=== PATIENT | male | born 1945 | race Caucasian/White ===

== ENCOUNTER → 2018-06-13 | Outpatient (CLI) | payer MEDICARE ==
[2018-06-13 12:19] LABS: Urine Blood Negative /uL (Negative); Urine Specific Gravity 1.021 (1.001-1.035)
[2018-06-13 12:31] LABS: Basophils # (auto) 0 uL; Basophils % (auto) 0.5 % (0.0-2.0); Eosinophils # (auto) 0.1 uL; Eosinophils % (auto) 1.7 % (0.0-7.0); Hemoglobin 15.7 g/dL (13.5-17.5); Lymphocytes # (auto) 1.4 uL; Lymphocytes % (auto) 32.6 % (10.0-50.0); Mean Corpuscular Hemoglobin 31.4 pg (28.0-32.0); Mean Corpuscular Hgb Conc. 34.3 g/dL (32.0-36.0); Mean Corpuscular Volume 91.7 fL (80.0-100.0); Monocytes # (auto) 0.4 uL; Monocytes % (auto) 10.5 % (0.0-12.0); Neutrophils # (auto) 2.3 uL; Neutrophils % (auto) 54.7 % (37.0-80.0); Nucleated Red Blood Cells % 0.5 %; Platelet Count (auto) 97 10^3/uL (140-450); Red Blood Cells 5.01 10^6/uL (4.5-5.90); White Blood Cell 4.2 10^3/uL (4.4-10.8)
[2018-06-13 12:56] LABS: Free T4 (Free Thyroxine) 1.17 ng/dL (0.89-1.76); Prostate Specific Antigen 1.97 ng/mL (0.0-4.0)
[2018-06-13 13:04] LABS: Albumin 3.9 g/dL (3.4-5.0); BUN/Creatinine Ratio 13.4; Bilirubin, Total 0.8 mg/dL (0.2-1.0); Calcium 8.8 mg/dL (8.5-10.1); Potassium 4.3 mmol/L (3.5-5.1); Total Protein 7.2 g/dL (6.4-8.2); Uric Acid 4.2 mg/dL (3.5-7.2)
== END | disposition home or self-care (01) ==
LOC: LAB 08:24
PROVIDERS: ATTEND Internal Medicine Cardiovascular Disease
DX: C61 Malignant neoplasm of prostate (principal); E11.9 Type 2 diabetes mellitus without complications; E03.9 Hypothyroidism, unspecified; E29.1 Testicular hypofunction; E55.9 Vitamin D deficiency, unspecified; M10.9 Gout, unspecified; D51.9 Vitamin B12 deficiency anemia, unspecified; N39.0 Urinary tract infection, site not specified
CPT/HCPCS: 36415; 80053; 80061; 81003; 82306; 82607; 83036; 84153; 84403; 84439; 84443; 84550; 85025

== ENCOUNTER → 2018-07-08 | Outpatient (CLI) | payer MEDICARE ==
[2018-07-08 12:44] LABS: Basophils # (auto) 0 uL; Basophils % (auto) 0.7 % (0.0-2.0); Eosinophils # (auto) 0.1 uL; Eosinophils % (auto) 1.1 % (0.0-7.0); Hematocrit 46.5 % (41.0-53.0); Hemoglobin 16.2 g/dL (13.5-17.5); Lymphocytes # (auto) 1.7 uL; Mean Corpuscular Hemoglobin 32.3 pg (28.0-32.0); Mean Corpuscular Hgb Conc. 34.8 g/dL (32.0-36.0); Mean Corpuscular Volume 92.7 fL (80.0-100.0); Monocytes # (auto) 0.5 uL; Monocytes % (auto) 8.8 % (0.0-12.0); Neutrophils % (auto) 57.4 % (37.0-80.0); Nucleated Red Blood Cells % 0.4 %; Platelet Count (auto) 107 10^3/uL (140-450); Red Blood Cells 5.02 10^6/uL (4.5-5.90); Red Cell Distribution Width 13.1 % (11.8-14.3); White Blood Cell 5.2 10^3/uL (4.4-10.8)
[2018-07-08 12:56] LABS: Urine Bacteria NONE SEEN /hpf (None Seen); Urine Blood Negative /uL (Negative); Urine Specific Gravity 1.012 (1.001-1.035); Urine WBC <1 /hpf (0 - 3)
== END | disposition home or self-care (01) ==
LOC: LAB 09:25
PROVIDERS: ATTEND Internal Medicine Cardiovascular Disease
DX: N39.0 Urinary tract infection, site not specified (principal); D64.9 Anemia, unspecified
CPT/HCPCS: 36415; 81001; 85025; 87086

== ENCOUNTER → 2018-10-07 | Outpatient (CLI) | payer MEDICARE ==
[2018-10-07 12:24] LABS: Urine Blood Negative /uL (Negative)
[2018-10-07 12:27] LABS: Basophils # (auto) 0 uL; Basophils % (auto) 0.6 % (0.0-2.0); Eosinophils # (auto) 0.1 uL; Eosinophils % (auto) 1.6 % (0.0-7.0); Hemoglobin 15.6 g/dL (13.5-17.5); Lymphocytes # (auto) 1.7 uL; Lymphocytes % (auto) 35.2 % (10.0-50.0); Mean Corpuscular Hemoglobin 31.6 pg (28.0-32.0); Mean Corpuscular Hgb Conc. 34.6 g/dL (32.0-36.0); Mean Corpuscular Volume 91.5 fL (80.0-100.0); Monocytes # (auto) 0.5 uL; Monocytes % (auto) 10.5 % (0.0-12.0); Neutrophils # (auto) 2.5 uL; Neutrophils % (auto) 52.1 % (37.0-80.0); Nucleated Red Blood Cells % 0.9 %; Platelet Count (auto) 92 10^3/uL (140-450); Red Blood Cells 4.92 10^6/uL (4.5-5.90); Red Cell Distribution Width 13.3 % (11.8-14.3); White Blood Cell 4.8 10^3/uL (4.4-10.8)
[2018-10-07 12:56] LABS: Albumin 3.8 g/dL (3.4-5.0); Anion Gap 5 (5-15); Blood Urea Nitrogen 18 mg/dL (7-18); Calcium 8.6 mg/dL (8.5-10.1); Carbon Dioxide 29 mmol/L (21-32); Chloride 106 mmol/L (98-107); Glucose 93 mg/dL (74-106); Sodium 140 mmol/L (136-145)
[2018-10-07 13:04] LABS: Alanine Aminotransferase 20 U/L (16-61); Alkaline Phosphatase 62 U/L (45-117); Aspartate Aminotransferase 12 U/L (15-37); BUN/Creatinine Ratio 13.5; Cholesterol 151 mg/dL (< 200); GFR Non-African American 56 mL/min; HDL Cholesterol 63 mg/dL (40-59); LDL Cholesterol 80 mg/dL (< 100); Total Protein 6.7 g/dL (6.4-8.2); Triglycerides 78 mg/dL (< 150)
[2018-10-07 13:13] LABS: Free T4 (Free Thyroxine) 1.09 ng/dL (0.89-1.76)
[2018-10-07 13:14] LABS: Prostate Specific Antigen 1.22 ng/mL (0.0-4.0)
[2018-10-07 13:39] LABS: GFR African American > 60 mL/min
== END | disposition home or self-care (01) ==
LOC: LAB 09:00
PROVIDERS: ATTEND Internal Medicine
DX: E03.9 Hypothyroidism, unspecified (principal); E11.9 Type 2 diabetes mellitus without complications; E55.9 Vitamin D deficiency, unspecified; C61 Malignant neoplasm of prostate; E29.1 Testicular hypofunction; D51.9 Vitamin B12 deficiency anemia, unspecified; N39.0 Urinary tract infection, site not specified
CPT/HCPCS: 36415; 80053; 80061; 81003; 82306; 82607; 83036; 84153; 84403; 84439; 84443; 85025; 87086

== ENCOUNTER → 2018-12-24 | Outpatient (CLI) | payer MEDICARE ==
[2018-12-24 12:14] LABS: BUN/Creatinine Ratio 14.2; Calcium 8.8 mg/dL (8.5-10.1); Potassium 4.6 mmol/L (3.5-5.1); Uric Acid 5.4 mg/dL (3.5-7.2)
== END | disposition home or self-care (01) ==
LOC: LAB 09:52
PROVIDERS: ATTEND Internal Medicine Cardiovascular Disease
DX: M10.9 Gout, unspecified (principal); I10 Essential (primary) hypertension
CPT/HCPCS: 36415; 80048; 84550

== ENCOUNTER → 2019-11-03 | Outpatient (CLI) | payer MEDICARE ==
[2019-11-03 12:22] LABS: Basophils # (auto) 0 uL; Basophils % (auto) 0.4 % (0.0-2.0); Eosinophils # (auto) 0.1 uL; Eosinophils % (auto) 1.6 % (0.0-7.0); Hematocrit 46.3 % (41.0-53.0); Hemoglobin 15.7 g/dL (13.5-17.5); Lymphocytes # (auto) 1.4 uL; Lymphocytes % (auto) 29.6 % (10.0-50.0); Mean Corpuscular Hemoglobin 31.6 pg (28.0-32.0); Monocytes # (auto) 0.5 uL; Monocytes % (auto) 9.9 % (0.0-12.0); Neutrophils # (auto) 2.9 uL; Neutrophils % (auto) 58.5 % (37.0-80.0); Nucleated Red Blood Cells % 0.2 %; Platelet Count (auto) 102 10^3/uL (140-450); Red Blood Cells 4.98 10^6/uL (4.5-5.90); White Blood Cell 4.9 10^3/uL (4.4-10.8)
[2019-11-03 12:38] LABS: Albumin 3.8 g/dL (3.4-5.0); Calcium 8.7 mg/dL (8.5-10.1); Potassium 4.2 mmol/L (3.5-5.1)
[2019-11-03 12:42] LABS: Free T4 (Free Thyroxine) 1.1 ng/dL (0.89-1.76)
[2019-11-03 12:43] LABS: BUN/Creatinine Ratio 13.3; Prostate Specific Antigen 1.45 ng/mL (0.0-4.0); Total Protein 7.1 g/dL (6.4-8.2)
[2019-11-03 12:53] LABS: Urine Blood Negative /uL (Negative); Urine Specific Gravity 1.025 (1.001-1.035)
== END | disposition home or self-care (01) ==
LOC: LAB 08:20
PROVIDERS: ATTEND Internal Medicine Cardiovascular Disease
DX: E03.9 Hypothyroidism, unspecified (principal); K90.9 Intestinal malabsorption, unspecified; C61 Malignant neoplasm of prostate; E29.1 Testicular hypofunction; N39.0 Urinary tract infection, site not specified; D51.9 Vitamin B12 deficiency anemia, unspecified; Z79.899 Other long term (current) drug therapy
CPT/HCPCS: 36415; 80053; 80061; 81003; 82306; 82607; 83036; 84153; 84403; 84439; 84443; 85025

== ENCOUNTER → 2020-06-24 | Outpatient (CLI) | payer MEDICARE ==
[2020-06-24 13:21] LABS: Calcium 8.8 mg/dL (8.5-10.1)
[2020-06-24 13:55] LABS: BUN/Creatinine Ratio 13.9; Potassium 4.4 mmol/L (3.5-5.1); Uric Acid 5.3 mg/dL (3.5-7.2)
== END | disposition home or self-care (01) ==
LOC: LAB 08:37
PROVIDERS: ATTEND Internal Medicine
DX: I10 Essential (primary) hypertension (principal); E55.9 Vitamin D deficiency, unspecified; M10.9 Gout, unspecified
CPT/HCPCS: 36415; 80048; 82306; 84550

== ENCOUNTER → 2020-08-16 | Outpatient (CLI) | payer MEDICARE ==
[2020-08-16 12:22] LABS: Calcium 8.8 mg/dL (8.5-10.1); Uric Acid 3.5 mg/dL (3.5-7.2)
[2020-08-16 12:27] LABS: BUN/Creatinine Ratio 15.3
== END | disposition home or self-care (01) ==
LOC: LAB 08:56
PROVIDERS: ATTEND Internal Medicine Cardiovascular Disease
DX: I10 Essential (primary) hypertension (principal); M10.9 Gout, unspecified
CPT/HCPCS: 36415; 80048; 84550

== ENCOUNTER → 2020-11-15 | Outpatient (CLI) | payer MEDICARE ==
[2020-11-15 13:12] LABS: BUN/Creatinine Ratio 14.5; Calcium 8.8 mg/dL (8.5-10.1); Potassium 4.1 mmol/L (3.5-5.1); Uric Acid 4.2 mg/dL (3.5-7.2)
== END | disposition home or self-care (01) ==
LOC: LAB 08:48
PROVIDERS: ATTEND Internal Medicine
DX: I10 Essential (primary) hypertension (principal); M10.9 Gout, unspecified
CPT/HCPCS: 36415; 80048; 84550

== ENCOUNTER → 2021-01-31 | Outpatient (CLI) | payer MEDICARE ==
[2021-01-31 12:12] LABS: BUN/Creatinine Ratio 11.9; Calcium 8.4 mg/dL (8.5-10.1); Uric Acid 4.2 mg/dL (3.5-7.2)
== END | disposition home or self-care (01) ==
LOC: LAB 08:00
PROVIDERS: ATTEND Internal Medicine
DX: M10.9 Gout, unspecified (principal); E55.9 Vitamin D deficiency, unspecified; I10 Essential (primary) hypertension
CPT/HCPCS: 36415; 80048; 82306; 84550

== ENCOUNTER → 2021-10-03 | Outpatient (CLI) | payer MEDICARE ==
[2021-10-03 11:38] LABS: Basophils # (auto) 0 10 ^3/uL (0-0.2); Basophils % (auto) 0.9 % (0.0-2.0); Eosinophils # (auto) 0.1 10 ^3/uL (0-0.8); Eosinophils % (auto) 1.4 % (0.0-7.0); Hematocrit 44.2 % (41.0-53.0); Hemoglobin 15.5 g/dL (13.5-17.5); Lymphocytes # (auto) 1.6 10 ^3/uL (0.4-5.4); Lymphocytes % (auto) 39.3 % (10.0-50.0); Mean Corpuscular Hgb Conc. 35.1 g/dL (32.0-36.0); Mean Corpuscular Volume 91.1 fL (80.0-100.0); Monocytes # (auto) 0.4 10 ^3/uL (0-1.3); Monocytes % (auto) 9.5 % (0.0-12.0); Neutrophils % (auto) 48.9 % (37.0-80.0); Nucleated Red Blood Cells % 0.3 %; Red Blood Cells 4.85 10^6/uL (4.5-5.90); Red Cell Distribution Width 13.1 % (11.8-14.3); White Blood Cell 4.2 10^3/uL (4.4-10.8)
[2021-10-03 12:07] LABS: Potassium 4.2 mmol/L (3.5-5.1)
[2021-10-03 12:21] LABS: BUN/Creatinine Ratio 13.9; Bilirubin, Total 0.8 mg/dL (0.2-1.0); Calcium 9.1 mg/dL (8.5-10.1); Total Protein 7.3 g/dL (6.4-8.2); Uric Acid 4.1 mg/dL (3.5-7.2)
== END | disposition home or self-care (01) ==
LOC: LAB 09:05
PROVIDERS: ATTEND Internal Medicine
DX: M10.9 Gout, unspecified (principal)
CPT/HCPCS: 36415; 80053; 83002; 83615; 84550; 85025

== ENCOUNTER → 2022-05-23 | Outpatient (CLI) | payer MEDICARE ==
[2022-05-23 12:27] LABS: Urine Blood Negative /uL (Negative); Urine Specific Gravity 1.017 (1.001-1.035)
[2022-05-23 12:38] LABS: Basophils # (auto) 0 10 ^3/uL (0-0.2); Basophils % (auto) 0.5 % (0.0-2.0); Eosinophils # (auto) 0.1 10 ^3/uL (0-0.8); Eosinophils % (auto) 1.5 % (0.0-7.0); Hematocrit 46.2 % (41.0-53.0); Hemoglobin 15.6 g/dL (13.5-17.5); Lymphocytes # (auto) 1.8 10 ^3/uL (0.4-5.4); Lymphocytes % (auto) 39.8 % (10.0-50.0); Mean Corpuscular Hemoglobin 30.9 pg (28.0-32.0); Mean Corpuscular Hgb Conc. 33.8 g/dL (32.0-36.0); Mean Corpuscular Volume 91.6 fL (80.0-100.0); Monocytes # (auto) 0.5 10 ^3/uL (0-1.3); Monocytes % (auto) 10.2 % (0.0-12.0); Neutrophils # (auto) 2.2 10 ^3/uL (1.6-8.6); Red Blood Cells 5.04 10^6/uL (4.5-5.90); Red Cell Distribution Width 13.9 % (11.8-14.3); White Blood Cell 4.5 10^3/uL (4.4-10.8)
[2022-05-23 12:48] LABS: Albumin 3.8 g/dL (3.4-5.0); Calcium 8.9 mg/dL (8.5-10.1); Potassium 4.4 mmol/L (3.5-5.1)
[2022-05-23 12:53] LABS: BUN/Creatinine Ratio 14.4; Bilirubin, Total 1.3 mg/dL (0.2-1.0); Total Protein 7.1 g/dL (6.4-8.2)
[2022-05-23 13:07] LABS: Free T4 (Free Thyroxine) 1.22 ng/dL (0.89-1.76)
[2022-05-23 13:08] LABS: Prostate Specific Antigen 1.66 ng/mL (0.0-4.0)
== END | disposition home or self-care (01) ==
LOC: LAB 08:29
PROVIDERS: ATTEND Internal Medicine
DX: C61 Malignant neoplasm of prostate (principal); I10 Essential (primary) hypertension; E55.9 Vitamin D deficiency, unspecified; D51.3 Other dietary vitamin B12 deficiency anemia; D64.9 Anemia, unspecified; E11.9 Type 2 diabetes mellitus without complications; R00.2 Palpitations; R53.1 Weakness; R30.0 Dysuria
CPT/HCPCS: 36415; 80053; 80061; 81003; 82306; 82607; 83036; 84153; 84403; 84439; 84443; 85025

== ENCOUNTER → 2023-04-20 | Outpatient (CLI) | payer MEDICARE | END | disposition home or self-care (01) | LOC: Rad HDHVI 14:38 | PROVIDERS: ATTEND Internal Medicine Cardiovascular Disease | DX: Z01.818 Encounter for other preprocedural examination (principal); D53.8 Other specified nutritional anemias; N39.0 Urinary tract infection, site not specified; M79.89 Other specified soft tissue disorders | CPT/HCPCS: 71046 ==

== ENCOUNTER → 2023-06-26 | Outpatient (CLI) | payer MEDICARE ==
[~2023-06-26] VITALS: Ht 185.4 cm; Wt 90.7 kg
== END | disposition home or self-care (01) ==
LOC: Rad HDHVI 12:57
PROVIDERS: ATTEND Internal Medicine Cardiovascular Disease
DX: I10 Essential (primary) hypertension (principal); Z79.899 Other long term (current) drug therapy
CPT/HCPCS: 78452; 93017; 96374; A9500

== ENCOUNTER → 2023-06-27 | Outpatient (CLI) | payer MEDICARE | END | disposition home or self-care (01) | LOC: Rad HDHVI 09:48 | PROVIDERS: ATTEND Internal Medicine Cardiovascular Disease | DX: I65.22 Occlusion and stenosis of left carotid artery (principal); I10 Essential (primary) hypertension | CPT/HCPCS: 93880 ==

== ENCOUNTER → 2023-06-29 | Outpatient (CLI) | payer MEDICARE | END | disposition home or self-care (01) | LOC: Rad HDHVI 09:54 | PROVIDERS: ATTEND Internal Medicine Cardiovascular Disease | DX: I35.0 Nonrheumatic aortic (valve) stenosis (principal); I11.9 Hypertensive heart disease without heart failure | CPT/HCPCS: 93306 ==

== ENCOUNTER → 2023-09-03 | Outpatient (CLI) | payer MEDICARE ==
[~2023-09-03] MED LIST: ALLO300T2 PO; ASPI-543 PO; CHOL50007 PO; LISI20TA56 PO; MULTTAB99 PO; SPIR25TA PO
[2023-09-03 12:26] VITALS: BP 156/54; PULSE 78; RESP 16; O2SAT 93
[2023-09-03 12:48] VITALS: BP 154/60; PULSE 79; RESP 16; O2SAT 93
== END | disposition home or self-care (01) ==
LOC: CHF HDHVI 12:18
PROVIDERS: ATTEND Internal Medicine Cardiovascular Disease
DX: Z01.818 Encounter for other preprocedural examination (principal); I44.7 Left bundle-branch block, unspecified; R94.31 Abnormal electrocardiogram [ECG] [EKG]; I11.0 Hypertensive heart disease with heart failure; I50.20 Unspecified systolic (congestive) heart failure; R94.39 Abnormal result of other cardiovascular function study
CPT/HCPCS: 93005; G0463

== ENCOUNTER 2023-09-06 07:25 | Day surgery (SDC) | payer MEDICARE ==
[2023-09-03 13:38] LABS: Basophils # (auto) 0 10 ^3/uL (0-0.2); Basophils % (auto) 0.4 % (0.0-2.0); Eosinophils # (auto) 0 10 ^3/uL (0-0.8); Eosinophils % (auto) 0.8 % (0.0-7.0); Hematocrit 48.4 % (41.0-53.0); Hemoglobin 16.4 g/dL (13.5-17.5); Lymphocytes # (auto) 1.7 10 ^3/uL (0.4-5.4); Lymphocytes % (auto) 29.4 % (10.0-50.0); Mean Corpuscular Hemoglobin 31.2 pg (28.0-32.0); Mean Corpuscular Hgb Conc. 33.9 g/dL (32.0-36.0); Mean Corpuscular Volume 92.1 fL (80.0-100.0); Monocytes # (auto) 0.5 10 ^3/uL (0-1.3); Monocytes % (auto) 7.8 % (0.0-12.0); Neutrophils # (auto) 3.6 10 ^3/uL (1.6-8.6); Neutrophils % (auto) 61.6 % (37.0-80.0); Nucleated Red Blood Cells % 0.2 %; Red Blood Cells 5.26 10^6/uL (4.5-5.90); Red Cell Distribution Width 13.7 % (11.8-14.3); White Blood Cell 5.8 10^3/uL (4.4-10.8)
[2023-09-03 13:48] LABS: INR 1.05 (0.9-1.15); Partial Thromboplastin Time 29.4 SEC (24.5-34.5)
[2023-09-03 14:06] LABS: Chloride 106 mmol/L (98-107); Potassium 4.3 mmol/L (3.5-5.1); Sodium 141 mmol/L (136-145)
[2023-09-03 14:07] LABS: Anion Gap 5 (5-15); Carbon Dioxide 30 mmol/L (20-30)
[2023-09-03 14:08] LABS: Calcium 9.7 mg/dL (8.5-10.1)
[2023-09-03 14:12] LABS: BUN/Creatinine Ratio 12.9 (10.0-20.0); Blood Urea Nitrogen 15 mg/dL (9-23); Glucose 93 mg/dL (74-106)
[~2023-09-06] VITALS: Ht 185.4 cm; Wt 94.3 kg
[2023-09-06] MEDS ORDERED: LIDOCAINE 2%HCL (LOCAL ANESTH.) INJ 20ML MDV ONE (10:36)
[2023-09-06] MEDS ORDERED: IODIXANOL 320MG/ML 100ML BTL IV ONE (10:36)
[2023-09-06] MEDS ORDERED: ANGIOMAX 250 MG VIAL IV ONE (10:38)
[2023-09-06] MEDS ORDERED: fentaNYL CITRATE 100 MCG/2 ML VL ONE (10:38)
[2023-09-06] MEDS ORDERED: MIDAZOLAM HCL 2MG/2ML 2ml VIAL (1mg/ml) ONE (10:39)
[2023-09-06] MEDS ORDERED: SODIUM CHL 0.9% 0 ML ONE (10:39)
[2023-09-06] MEDS ORDERED: IOHEXOL 350 MG/ML 100ML IJ ONE (10:39)
[2023-09-06 11:20] VITALS: BP 165/84; PULSE 72; RESP 18; TEMP 98.3; O2SAT 95
[2023-09-06 11:34] VITALS: BP 148/73; PULSE 66; RESP 16; O2SAT 94
[2023-09-06 11:51] VITALS: BP 143/74; PULSE 65; RESP 18; O2SAT 95
[2023-09-06 12:03] VITALS: BP 165/65; PULSE 60; RESP 15; O2SAT 93
[2023-09-06 12:26] VITALS: BP 150/69; PULSE 70; RESP 19; O2SAT 93
[2023-09-06 13:00] VITALS: BP 163/82; PULSE 69; RESP 17; O2SAT 94
== END 2023-09-06 11:30 | disposition home or self-care (01) ==
LOC: CATH 07:25
PROVIDERS: ATTEND Internal Medicine Cardiovascular Disease
DX: I42.0 Dilated cardiomyopathy (principal); I11.0 Hypertensive heart disease with heart failure; I50.20 Unspecified systolic (congestive) heart failure; I44.7 Left bundle-branch block, unspecified
CPT/HCPCS: 36415; 80048; 85025; 85610; 85730; 93458; C1894; J1644; J2250; J3010; Q9967; 99152

== ENCOUNTER → 2023-09-28 | Outpatient (CLI) | payer MEDICARE ==
[~2023-09-28] MED LIST changes: +CARV12.544 PO; +LEVO500T91 PO
[2023-09-28 12:44] VITALS: BP 154/69; PULSE 56; RESP 16; O2SAT 93
[2023-09-28 13:03] VITALS: BP 153/67; PULSE 56; RESP 16; O2SAT 93
== END | disposition home or self-care (01) ==
LOC: CHF HDHVI 12:37
PROVIDERS: ATTEND Internal Medicine Cardiovascular Disease
DX: Z01.818 Encounter for other preprocedural examination (principal); I44.7 Left bundle-branch block, unspecified; R94.31 Abnormal electrocardiogram [ECG] [EKG]; I42.0 Dilated cardiomyopathy; R00.1 Bradycardia, unspecified; I50.20 Unspecified systolic (congestive) heart failure
CPT/HCPCS: 93005; G0463

== ENCOUNTER 2023-10-04 08:00 | Day surgery (SDC) | payer MEDICARE ==
[2023-09-28 13:55] LABS: Basophils # (auto) 0 10 ^3/uL (0-0.2); Basophils % (auto) 0.2 % (0.0-2.0); Eosinophils # (auto) 0.1 10 ^3/uL (0-0.8); Eosinophils % (auto) 1.1 % (0.0-7.0); Hematocrit 45.3 % (41.0-53.0); Hemoglobin 15.4 g/dL (13.5-17.5); Lymphocytes # (auto) 1.6 10 ^3/uL (0.4-5.4); Lymphocytes % (auto) 30.2 % (10.0-50.0); Mean Corpuscular Hemoglobin 30.9 pg (28.0-32.0); Mean Corpuscular Volume 90.8 fL (80.0-100.0); Monocytes # (auto) 0.5 10 ^3/uL (0-1.3); Monocytes % (auto) 8.5 % (0.0-12.0); Neutrophils # (auto) 3.2 10 ^3/uL (1.6-8.6); Nucleated Red Blood Cells % 0.2 %; Red Blood Cells 4.99 10^6/uL (4.5-5.90); Red Cell Distribution Width 13.8 % (11.8-14.3); White Blood Cell 5.4 10^3/uL (4.4-10.8)
[2023-09-28 14:16] LABS: Anion Gap 3 (5-15); Carbon Dioxide 34 mmol/L (20-30); Chloride 105 mmol/L (98-107); Potassium 4.3 mmol/L (3.5-5.1); Sodium 142 mmol/L (136-145)
[2023-09-28 14:17] LABS: Calcium 9.2 mg/dL (8.5-10.1)
[2023-09-28 14:19] LABS: INR 1.06 (0.9-1.15); Partial Thromboplastin Time 29.5 SEC (24.5-34.5); Prothrombin Time 11.1 sec (9.3-11.8)
[2023-09-28 14:22] LABS: Blood Urea Nitrogen 18 mg/dL (9-23); Glucose 88 mg/dL (74-106)
[~2023-10-04] VITALS: Ht 185.4 cm; Wt 93.0 kg
[~2023-10-04 08:00] MED LIST changes: -LEVO500T91 PO
[2023-10-04] MEDS ORDERED: VANCOMYCIN 1GM/200ML 200 ML IV ONE (09:00)
[2023-10-04] MEDS ORDERED: VANCOMYCIN HCL 1000 MG VL ONE (12:25)
[2023-10-04] MEDS ORDERED: VANCOMYCIN 1GM/200ML 0 ML IV ONE (12:26)
[2023-10-04] MEDS ORDERED: MIDAZOLAM HCL 2MG/2ML 2ml VIAL (1mg/ml) ONE (12:26)
[2023-10-04] MEDS ORDERED: LIDOCAINE 2%HCL (LOCAL ANESTH.) INJ 20ML MDV ONE (12:26)
[2023-10-04] MEDS ORDERED: IOHEXOL 350 MG/ML 100ML IJ ONE ×2 (12:26→12:27)
[2023-10-04] MEDS ORDERED: fentaNYL CITRATE 100 MCG/2 ML VL ONE (12:26)
[2023-10-04 13:54] VITALS: BP 137/67; PULSE 57; RESP 16; TEMP 98.5; O2SAT 91
[2023-10-04 14:10] VITALS: BP 139/67; PULSE 58; RESP 18; O2SAT 97
[2023-10-04 14:23] VITALS: BP 137/68; PULSE 56; RESP 17; O2SAT 94
[2023-10-04 14:41] VITALS: BP 154/70; PULSE 58; RESP 16; O2SAT 93
[2023-10-04] MEDS ORDERED: LEVO500T91 PO (15:00)
[2023-10-04 15:15] VITALS: BP 142/72; PULSE 54; RESP 15; O2SAT 96
[2023-10-04 16:04] VITALS: BP 143/69; PULSE 59; RESP 17; O2SAT 95
== END 2023-10-04 16:25 | disposition home or self-care (01) ==
LOC: CATH 08:00
PROVIDERS: ATTEND Internal Medicine Cardiovascular Disease
DX: I50.22 Chronic systolic (congestive) heart failure (principal); I11.0 Hypertensive heart disease with heart failure; I42.0 Dilated cardiomyopathy; Z88.8 Allergy status to other drugs, medicaments and biological substances; Z88.0 Allergy status to penicillin; Z91.040 Latex allergy status; Z79.82 Long term (current) use of aspirin; Z79.899 Other long term (current) drug therapy
CPT/HCPCS: 33249; 71045; 93005; C1882; C1894; C1895; C1898; J2250; J3010; J3370; Q9967; 36415; 80048; 85025; 85610; 85730; 99152

== ENCOUNTER → 2023-10-29 | Outpatient (CLI) | payer MEDICARE ==
[~2023-10-29] MED LIST changes: +LEVO500T91 PO
== END | disposition home or self-care (01) ==
LOC: Rad HDHVI 12:53
PROVIDERS: ATTEND Internal Medicine Cardiovascular Disease
DX: I08.2 Rheumatic disorders of both aortic and tricuspid valves (principal); I11.9 Hypertensive heart disease without heart failure
CPT/HCPCS: 93306

== ENCOUNTER → 2024-05-01 | Outpatient (CLI) | payer MEDICARE ==
[2024-05-01 11:03] LABS: Basophils # (auto) 0 10 ^3/uL (0-0.2); Basophils % (auto) 0.3 % (0.0-2.0); Eosinophils # (auto) 0.1 10 ^3/uL (0-0.8); Eosinophils % (auto) 1.6 % (0.0-7.0); Hematocrit 45.6 % (41.0-53.0); Hemoglobin 15.7 g/dL (13.5-17.5); Lymphocytes # (auto) 1.7 10 ^3/uL (0.4-5.4); Lymphocytes % (auto) 26.6 % (10.0-50.0); Mean Corpuscular Hemoglobin 32.7 pg (28.0-32.0); Mean Corpuscular Hgb Conc. 34.4 g/dL (32.0-36.0); Mean Corpuscular Volume 95.1 fL (80.0-100.0); Monocytes # (auto) 0.6 10 ^3/uL (0-1.3); Monocytes % (auto) 10.1 % (0.0-12.0); Neutrophils # (auto) 3.9 10 ^3/uL (1.6-8.6); Neutrophils % (auto) 61.4 % (37.0-80.0); Nucleated Red Blood Cells % 0.1 %; Red Blood Cells 4.79 10^6/uL (4.5-5.90); Red Cell Distribution Width 13.5 % (11.8-14.3); White Blood Cell 6.4 10^3/uL (4.4-10.8)
[2024-05-01 11:10] LABS: Urine Blood Negative /uL (Negative); Urine Clarity Clear (Clear); Urine Color Yellow (Yellow); Urine Protein, UAD Negative (Negative); Urine Specific Gravity 1.011 (1.001-1.035); Urine Urobilinogen Normal (Negative)
[2024-05-01 11:55] LABS: Alkaline Phosphatase 82 U/L (46-116); Anion Gap 3 (5-15); BUN/Creatinine Ratio 11.8 (10.0-20.0); Blood Urea Nitrogen 14 mg/dL (9-23); Calcium 9.6 mg/dL (8.7-10.4); Carbon Dioxide 29 mmol/L (20-30); Chloride 108 mmol/L (98-107); Glucose 99 mg/dL (74-106); LDL Cholesterol 81 mg/dL (< 100); Potassium 5.2 mmol/L (3.5-5.1); Sodium 140 mmol/L (136-145); Triglycerides 91 mg/dL (< 150)
[2024-05-01 11:56] LABS: Albumin 4.3 g/dL (3.2-4.8); Aspartate Aminotransferase 12 U/L (13-40); Bilirubin, Direct 0.3 mg/dL (<0.3); Bilirubin, Total 1.1 mg/dL (0.2-1.0); Cholesterol 147 mg/dL (< 200); HDL Cholesterol 52 mg/dL (40-59); Total Protein 6.8 g/dL (5.7-8.2)
[2024-05-01 12:02] LABS: Alanine Aminotransferase < 9 U/L (7-40)
== END | disposition home or self-care (01) ==
LOC: LAB 10:37
PROVIDERS: ATTEND Internal Medicine Cardiovascular Disease
DX: C61 Malignant neoplasm of prostate (principal); I10 Essential (primary) hypertension; E11.9 Type 2 diabetes mellitus without complications; D51.3 Other dietary vitamin B12 deficiency anemia; R30.0 Dysuria; E55.9 Vitamin D deficiency, unspecified; R00.2 Palpitations
CPT/HCPCS: 36415; 80048; 80061; 80076; 81003; 83036; 84153; 84403; 84443; 85025

== ENCOUNTER → 2025-01-19 | Outpatient (CLI) | payer MEDICARE | END | disposition home or self-care (01) | LOC: Rad HDHVI 10:55 | PROVIDERS: ATTEND Internal Medicine Cardiovascular Disease | DX: I35.1 Nonrheumatic aortic (valve) insufficiency (principal); I77.819 Aortic ectasia, unspecified site; I11.9 Hypertensive heart disease without heart failure; E78.5 Hyperlipidemia, unspecified | CPT/HCPCS: 93306 ==

== ENCOUNTER 2025-02-11 09:57 | Outpatient (CLI) | payer MEDICARE ==
[~2025-02-11] VITALS: Ht 185.4 cm; Wt 90.7 kg
[2025-02-11] MEDS ORDERED: ADENOSINE 90 MG/30 ML INJ IV ONE (12:00)
[2025-02-11] MEDS ORDERED: ADENOSINE 76 MG in GIVE UN-DILUTED 0 ML IV ONE (16:30)
== END 2025-02-11 17:00 | disposition home or self-care (01) ==
LOC: Rad HDHVI 09:57
PROVIDERS: ATTEND Internal Medicine Cardiovascular Disease
DX: Z13.6 Encounter for screening for cardiovascular disorders (principal); I49.3 Ventricular premature depolarization; I13.0 Hypertensive heart and chronic kidney disease with heart failure and stage 1 through stage 4 chronic kidney disease, or unspecified chronic kidney disease; I50.23 Acute on chronic systolic (congestive) heart failure; N18.30 Chronic kidney disease, stage 3 unspecified; I48.0 Paroxysmal atrial fibrillation; I42.0 Dilated cardiomyopathy; E78.00 Pure hypercholesterolemia, unspecified; Z95.0 Presence of cardiac pacemaker; Z79.82 Long term (current) use of aspirin
CPT/HCPCS: 78452; 93017; A9500; J0153

== ENCOUNTER 2025-04-22 08:59 | Outpatient (CLI) | payer MEDICARE ==
[2025-04-22 09:13] VITALS: BP 128/61; PULSE 74; RESP 17; O2SAT 94
[2025-04-22 09:50] VITALS: BP 118/59; PULSE 76; RESP 18; O2SAT 95
--- NOTE | 2025-04-22 12:46 | DVH ---
CHEST RADIOGRAPH Indication: PRE OP CARDIAC CLEARANCE Technique: Single frontal view of the chest was obtained Comparison: XY CHEST PORTABLE on DOS: 10/04/23, XY CHEST TWO VIEWS ROUTINE on DOS: 04/20/23 FINDINGS: Left chest triple lead cardiac pacer device. The cardiac silhouette is enlarged. The lungs demonstrate perihilar airspace opacities. The pulmonary vasculature is prominent. There is no pleural effusion. There is no pneumothorax. Aortic atheroscler otic disease. Moderate thoracic degenerative disc disease. IMPRESSION: Cardiomegaly with pulmonary vascular congestion and bilateral perihilar airspace opacities.
[2025-04-22] MEDS ORDERED: HYDR25TA5 PO (12:57)
== END 2025-04-22 17:00 | disposition home or self-care (01) ==
LOC: Rad HDHVI 08:59
PROVIDERS: ATTEND Internal Medicine Cardiovascular Disease
DX: Z01.818 Encounter for other preprocedural examination (principal); I35.1 Nonrheumatic aortic (valve) insufficiency; I48.0 Paroxysmal atrial fibrillation; I51.7 Cardiomegaly; I70.0 Atherosclerosis of aorta; R09.89 Other specified symptoms and signs involving the circulatory and respiratory systems; I44.7 Left bundle-branch block, unspecified; J98.4 Other disorders of lung; M51.34 Other intervertebral disc degeneration, thoracic region; Z95.0 Presence of cardiac pacemaker
CPT/HCPCS: 71046; 93005; G0463

== ENCOUNTER 2025-04-23 06:27 | Day surgery (SDC) | payer MEDICARE ==
[2025-04-22 11:38] LABS: Hematocrit 45.0 % (41.0-53.0); Hemoglobin 15.7 g/dL (13.5-17.5); Mean Corpuscular Hemoglobin 32.8 pg (28.0-32.0); Mean Corpuscular Volume 93.9 fL (80.0-100.0); Nucleated Red Blood Cells % 0.0 %
[2025-04-22 11:52] LABS: INR 1.04 (0.9-1.15); Partial Thromboplastin Time 30.8 SEC (24.5-34.5); Prothrombin Time 11.0 sec (9.3-11.8)
[2025-04-22 12:12] LABS: Anion Gap 7 (5-15); Carbon Dioxide 29 mmol/L (20-31); Chloride 103 mmol/L (98-107); Potassium 4.6 mmol/L (3.5-5.1); Sodium 139 mmol/L (136-145)
[2025-04-22 12:13] LABS: Calcium 9.5 mg/dL (8.7-10.4)
[2025-04-22 12:18] LABS: BUN/Creatinine Ratio 13.3 (10.0-20.0); Blood Urea Nitrogen 19 mg/dL (9-23); Glucose 91 mg/dL (74-106)
[~2025-04-23] VITALS: Ht 185.4 cm; Wt 97.1 kg
[~2025-04-23 06:27] MED LIST changes: -ASPI-543 PO; +HYDR25TA5 PO; -LEVO500T91 PO; -SPIR25TA PO
[2025-04-23] MEDS: IOHEXOL 350 MG/ML 100ML IJ ONE (07:17)
[2025-04-23] MEDS: MIDAZOLAM HCL 2MG/2ML 2ml VIAL (1mg/ml) ONE (07:20)
[2025-04-23] MEDS: fentaNYL CITRATE 100 MCG/2 ML VL ONE (07:20)
[2025-04-23] MEDS: ANGIOMAX 250 MG VIAL IV ONE (07:20)
[2025-04-23] MEDS: SODIUM CHL 0.9% 0 ML ONE (07:20)
[2025-04-23] MEDS: LIDOCAINE 2%HCL (LOCAL ANESTH.) INJ 20ML MDV ONE (07:21)
[2025-04-23 09:46] VITALS: BP 129/60; PULSE 64; RESP 18; TEMP 97.6; O2SAT 97
[2025-04-23 10:01] VITALS: BP 108/60; PULSE 63; RESP 14; O2SAT 94
[2025-04-23 10:16] VITALS: BP 113/56; PULSE 66; RESP 14; O2SAT 95
--- NOTE | 2025-04-23 10:20 | DVHHP ---
ADMIT DATE: 04/23/2025 HISTORY OF PRESENT ILLNESS: The patient with history of hypertension and hyperlipidemia, with moderate to severe aortic valve insufficiency, now ejection fraction is slightly diminished with EF of around 50%. Both by echocardiography as well as by MUGA scan first pass, perfusion is normal, but moderate to severe AI, therefore, he may require aortic valve replacement. Because of this presentation, the patient should undergo left and right heart catheterization to further evaluate for aortic valve insufficiency, because I do not want the aortic root to dilate significantly that is also to be difficulty to do a percutaneous procedure. Continue to follow the patient. REVIEW OF SYSTEMS: The patient has no history of CVA. No seizure disorder. No history of any movement disorder. No visual disturbances. No hearing deficit. The patient with no GI symptomatology such as dysphagia, diarrhea, constipation, irritable bowel syndrome, inflammatory bowel disease. He denies any liver disease. Denies any GI symptomatology. Denies any bleeding diathesis such as hematemesis, hemoptysis, coagulopathy, hematochezia, or hematuria. No melena or hematochezia as well. Lungs are clear. No history of pneumonia. No history of COPD. No history of tobacco or alcohol use. At this time, no previous history of myocardial infarction. Extremities unremarkable, 2+ pulses. No fever, no chills. No recent travel outside the country. His vaccination profiles are within normal limits. PHYSICAL EXAMINATION: VITAL SIGNS: Blood pressure is 100/60, pulse of 60 and regular, O2 saturation 91% on room air. HEENT: Pupils are reactive. Funduscopic exam is benign. Sclerae anicteric. No exudates noted. Tympanic membranes are negative. Oral mucosa moist. Posterior pharynx without any exudates. NECK: Supple. No nuchal rigidity. No cervical adenopathy. No supraclavicular adenopathy. No axillary adenopathy as well. Carotid pulses are 2+ and symmetrical with normal upstroke and contour. No JVD. Thyroid is within normal limits. PULMONARY: Clear to auscultation. Tympanitic to percussion. No rhonchi. No wheezes. No esophagitis. CARDIOVASCULAR: Regular rate without S3 or S4. PMI is nondisplaced. ABDOMEN: Soft, nontender. Normal bowel sounds. Liver approximately 5 cm by percussion. NEUROLOGIC: The patient is intact. DTRs are 2+ and symmetrical. ASSESSMENT AND PLAN: Thus, the patient with aortic valve insufficiency. Ejection fraction is diminished by echo to 45%. The patient is now to undergo left and right heart catheterization and may require aortic valve replacement. We will make further recommendations after the left and right heart catheterization. James Long MD SA/MALENA TID: [id number] RECEIPT: [id number]
--- NOTE | 2025-04-23 10:26 | DVHOP ---
DATE OF SURGERY: 04/23/2025 PROCEDURES TO BE PERFORMED: * Selective left and right coronary angiography. * Ventriculogram. * Right iliac angiography. * Conscious sedation was given as well. * FFR was done of the left anterior descending artery. DESCRIPTION OF PROCEDURE: The patient was prepped and draped under sterile fashion. A 1% Xylocaine was used to anesthetize the right groin. Using Cook needle, the right femoral artery was engaged using Seldinger technique. A 6-Beninese sheath was placed in the right femoral artery. A 6-Beninese JL4 catheter and a 6-Beninese JR4 catheter, selective left and right coronary angiography was performed. Using a 6-Beninese Pigtail catheter, ventriculogram was done. Then, FFR of the left anterior descending artery mid portion was performed as well. Similarly, the right femoral vein was engaged using Seldinger technique. A 6-Beninese sheath was placed into the right femoral vein. Using a 6-Beninese balloon-tipped thermodilutional catheter, right-sided pressure tracings were obtained. There were no complications. The patient tolerated the procedure well. RESULTS: * Left main was patent. * Left anterior descending artery has rapid tapering. In the mid portion, there is about a 50% narrowing. FFR was 0.84. Otherwise, no flow restrictive lesion. Circumflex artery without any flow restrictive lesion. The right coronary artery without any flow restrictive lesion. Left ventricular function, however, is slightly diminished with EF around 30%. An LVEDP of 9 mmHg with no gradient across the aortic valve. Left ventricular systolic pressure was 97. * Right heart catheterization shows capillary wedge pressure of 7, PA pressure of 25/10, RV pressure of 25/6 and RA pressure of 6. CONCLUSION: * Thus, the patient with aortic valve insufficiency. However, no significant coronary artery disease other than moderate disease of the left anterior descending artery with a rapid tapering, but FFR was 0.84, so therefore, no intervention is required in the mid portion. * Diminished left ventricular ejection fraction of only 25%-30%; however, PA pressures and right-sided pressures, including capillary wedge pressure, all are within normal limits. At this time, the patient may be scheduled for aortic valve replacement. We will discuss it with the patient and family at a later date. James Long MD SA/LUZ TID: [id number] RECEIPT: [id number]
[2025-04-23 10:31] VITALS: BP 107/53; PULSE 64; RESP 16; O2SAT 94
--- NOTE | 2025-04-23 10:35 | DVHDS ---
DATE OF DISCHARGE: 04/23/2025 DISCHARGE DIAGNOSES: * The patient with aortic valve insufficiency, moderate. * However, coronary anatomy was unremarkable. * The patient's right-sided and left-sided pressures were within normal limits. Capillary wedge pressure was normal. LVEDP was normal as well at around 9 mmHg with no gradient across the aortic valve. At this time, the patient should be reassessed for aortic valve replacement. HOSPITAL COURSE: The patient has a Bi-V AICD. However, the patient's RA lead may be displaced and that may account for some of the symptoms the patient is experiencing. If indeed the RA lead is displaced, replacement of the RA lead may be beneficial giving AV sequential pacing, but if the sinus node is being adequately sensed by the pacemaker lead, A-sensed, V-paced, then I do not believe any additional therapy is required. We will continue to follow the patient. Stable at the time of discharge. DISPOSITION: Home. ACTIVITY: As instructed. DIET: A 2-gram sodium diet. James Long MD SA/LUZ TID: [id number] RECEIPT: [id number]
[2025-04-23 10:46] VITALS: BP 110/51; PULSE 58; RESP 16; O2SAT 94
== END 2025-04-23 12:10 | disposition home or self-care (01) ==
LOC: CATH 06:27
PROVIDERS: ATTEND Internal Medicine Cardiovascular Disease
DX: I25.10 Atherosclerotic heart disease of native coronary artery without angina pectoris (principal); I10 Essential (primary) hypertension; E78.5 Hyperlipidemia, unspecified; I35.1 Nonrheumatic aortic (valve) insufficiency; R07.89 Other chest pain; R06.02 Shortness of breath; Z95.810 Presence of automatic (implantable) cardiac defibrillator; Z79.899 Other long term (current) drug therapy
CPT/HCPCS: 0523T; 36415; 80048; 85025; 85610; 85730; 93460; C1760; C1894; J1644; J2250; J3010; Q9967; 99152

== ENCOUNTER 2025-05-20 12:30 | Outpatient (CLI) | payer MEDICARE ==
[2025-05-20 12:41] VITALS: BP 125/61; PULSE 74; RESP 16; O2SAT 93
[2025-05-20 12:55] VITALS: BP 113/56; PULSE 75; RESP 16; O2SAT 93
[2025-05-20] MEDS ORDERED: CLOP75TA28 PO (14:03)
== END 2025-05-20 17:00 | disposition home or self-care (01) ==
LOC: CHF HDHVI 12:30
PROVIDERS: ATTEND Internal Medicine Cardiovascular Disease
DX: Z01.810 Encounter for preprocedural cardiovascular examination (principal); I35.1 Nonrheumatic aortic (valve) insufficiency; I48.91 Unspecified atrial fibrillation
CPT/HCPCS: 93005; G0463

== ENCOUNTER 2025-05-21 07:00 | Day surgery (SDC) | payer MEDICARE ==
[2025-05-20 14:38] LABS: Hematocrit 45.9 % (41.0-53.0); Hemoglobin 16.0 g/dL (13.5-17.5); Mean Corpuscular Hemoglobin 32.7 pg (28.0-32.0); Mean Corpuscular Volume 93.8 fL (80.0-100.0); Nucleated Red Blood Cells % 0.4 %
[2025-05-20 15:01] LABS: INR 1.02 (0.9-1.15); Partial Thromboplastin Time 28.1 SEC (24.5-34.5); Prothrombin Time 10.8 sec (9.3-11.8)
[2025-05-20 15:42] LABS: Chloride 104 mmol/L (98-107); Potassium 4.8 mmol/L (3.5-5.1); Sodium 143 mmol/L (136-145)
[2025-05-20 15:43] LABS: Anion Gap 8 (5-15); Carbon Dioxide 31 mmol/L (20-31)
[2025-05-20 15:44] LABS: Calcium 9.4 mg/dL (8.7-10.4)
[2025-05-20 15:49] LABS: BUN/Creatinine Ratio 12.1 (10.0-20.0); Blood Urea Nitrogen 20 mg/dL (9-23); Glucose 71 mg/dL (74-106)
[~2025-05-21] VITALS: Ht 185.4 cm; Wt 96.6 kg
[~2025-05-21 07:00] MED LIST changes: +CLOP75TA28 PO
[2025-05-21] MEDS ORDERED: MIDAZOLAM HCL 2MG/2ML 2ml VIAL (1mg/ml) IV ONE (08:45)
--- NOTE | 2025-05-21 11:16 | DVHDS ---
DATE OF DISCHARGE: 05/21/2025 DISCHARGE DIAGNOSIS: Moderate aortic valve insufficiency. Clinically, the patient is stable. May be discharged home. Stable at the time of discharge. Ejection fraction by JAZZY was around 40% to 45%. DISPOSITION: Home. ACTIVITY: As instructed. DIET: 2 gram sodium diet. We will continue to follow the patient. James Long MD SA/ISAURA TID: [id number] RECEIPT: [id number]
--- NOTE | 2025-05-21 11:20 | DVHOP ---
DATE OF SURGERY: 05/21/2025 PROCEDURE PERFORMED: Transesophageal echocardiography, conscious sedation. INDICATIONS: The patient has aortic valve insufficiency, now to undergo transesophageal echocardiography to find severity of PRASHANT. Further recommendations after the JAZZY. Risks and benefits were explained to the patient. DESCRIPTION OF PROCEDURE: The patient was given adequate conscious sedation and the Omni Plane transesophageal probe was used to intubate the esophagus. The standard transesophageal echocardiogram images were obtained. RESULTS: * Right ventricular and right atrial pacing leads were noted. * The patient with mild mitral regurgitation. * Trace tricuspid insufficiency. * Left ventricular ejection fraction around 40% with borderline concentric LVH. * Moderate aortic valve insufficiency. CONCLUSION: The patient with EF around 40% with moderate aortic valve insufficiency. No significant dilatation and ascending aorta noted. No significant aortic root dilatation noted. At this time, continue conservative medical management. I do not believe the patient requires aortic valve replacement quite yet. James Long MD SA/JENI TID: [id number] RECEIPT: [id number]
--- NOTE | 2025-05-21 11:49 | DVHHP ---
ADMIT DATE: 05/21/2025 HISTORY OF PRESENT ILLNESS: The patient is 80 with a history of cardiomyopathy status post AICD implantation. The patient is now to undergo transesophageal echocardiography because the patient's transthoracic shows patient has significant aortic valve insufficiency. Because of the AI, it is felt the patient may require aortic valve replacement, and prior to referring to aortic valve replacement, I felt that the patient should undergo JAZZY. Angiogram showed preserved coronary anatomy. Left ventricular ejection fraction around 40% at this time. The patient is now to undergo JAZZY as stated above. Risks and benefits were explained to the patient. He denies any PND, orthopnea, or palpitations. No syncopal episodes. No melena or hematochezia. No hematemesis or hemoptysis. No seizure disorder. No history of CVA. No history of irritable bowel syndrome or rheumatologic disorders. No history of irritable bowel syndrome. No inflammatory bowel disease. No liver disease. No lung disease at this time. SOCIAL HISTORY: No history of tobacco or alcohol use at this time. PHYSICAL EXAMINATION: VITAL SIGNS: Blood pressure is 134/84, pulse is 70, O2 saturation is 96% on room air. HEENT: Pupils are reactive. Funduscopic exam shows no AV nicking, no exudates, no papilledema. Sclerae anicteric. Extraocular muscles are intact. NECK: No JVD appreciated. No clinical findings of severe AI is noted as well. No head bobbing. No Nick's sign as well. Carotid pulses are 2+ symmetrical. Normal upstroke and contour. No cervical adenopathy. No supraclavicular adenopathy. PULMONARY: Clear to auscultation. CARDIOVASCULAR: Regular rate. The soft diastolic rumble along the left sternal border. ABDOMEN: Obese, unable to appreciate organomegaly. Stool guaiac is negative. EXTREMITIES: 1+ pulses. ASSESSMENT AND PLAN: Patient with cardiomyopathy status post AICD implantation now with aortic valve insufficiency, moderate to severe. JAZZY to define the severity of AI before making any further recommendations. The patient also has an aortic aneurysm, but that is not significant at this time, does not warrant any intervention. We will continue to follow the patient. Further recommendations after the JAZZY. James Long MD SA/NORMA/EPHRAIM TID: [id number] RECEIPT: [id number]
== END 2025-05-21 11:55 | disposition home or self-care (01) ==
LOC: CATH 07:00
PROVIDERS: ATTEND Internal Medicine Cardiovascular Disease
DX: I08.0 Rheumatic disorders of both mitral and aortic valves (principal); I42.9 Cardiomyopathy, unspecified; Z79.899 Other long term (current) drug therapy; Z95.810 Presence of automatic (implantable) cardiac defibrillator; Z87.891 Personal history of nicotine dependence; Z88.0 Allergy status to penicillin; Z88.1 Allergy status to other antibiotic agents; Z88.8 Allergy status to other drugs, medicaments and biological substances; Z91.040 Latex allergy status
CPT/HCPCS: 36415; 80048; 85025; 85610; 85730; 93312; 93325; J2250; 99152; 99153